=== PATIENT | male | born 1975 | race Caucasian/White ===

== ENCOUNTER 2017-11-22 08:13 | Emergency (ER) | payer BC ==
[~2017-11-22] VITALS: Ht 182.9 cm; Wt 99.3 kg
[2017-11-22 08:18] VITALS: Ht 182.9 cm; Wt 99.3 kg
[2017-11-22 09:47] VITALS: BP 133/95
== END 2017-11-22 09:47 | disposition home or self-care (01) ==
LOC: ED 08:13
DX: S52.121A Displaced fracture of head of right radius, initial encounter for closed fracture (principal); W18.39XA Other fall on same level, initial encounter; Y93.89 Activity, other specified; Y92.89 Other specified places as the place of occurrence of the external cause; Y99.8 Other external cause status
CPT/HCPCS: Q0092